=== PATIENT | male | born 1955 | race Caucasian/White ===

== ENCOUNTER → 2016-06-14 | Outpatient (CLI) | payer OTHER ==
[~2016-06-14] MED LIST: AMLO1CAP4 PO; ASPI-587 PO; DESV50TA PO; FENO145T2 PO
--- NOTE | 2016-06-14 14:15 | Diagnostic Imaging Report ---
INDICATION: Three views of the right hand. INDICATION: Pain at the base of the right thumb and near the wrist. FINDINGS: There is sclerosis, joint space narrowing, and hyperostosis seen around the carpal/metacarpal joint at the base of the thumb. No acute fracture is identified. The joint alignment is satisfactory. Mild degenerative changes at the DIP and to lesser extent at the PIP joints is seen. There is deformity from an old healed fracture of the distal shaft of the fifth metacarpal. IMPRESSION: Prominent osteoarthritic changes at the carpal/metacarpal joint at the base of the thumb with hyperostosis which could relate to a superimposed old injury. No acute fracture is seen. If the pain is centered at the wrist area, then consider dedicated wrist radiographs for better evaluation. The report was faxed to the office of Lizbeth Schneider APRN, by BREE at 2:20 PM. Dictated by: Dictated on workstation # [id number]
== END ==
LOC: RAD 13:49
PROVIDERS: ATTEND Nurse Practitioner Family
DX: M79.644 Pain in right finger(s) (principal)
CPT/HCPCS: 73130

== ENCOUNTER 2016-12-09 16:40 | Emergency (ER) | payer OTHER ==
[~2016-12-09] VITALS: Ht 177.8 cm; Wt 102.1 kg
[2016-12-09] MEDS ORDERED: MELO15TA39 PO (16:57)
[2016-12-09] MEDS ORDERED: FLEXERIL (16:57)
[2016-12-09] MEDS ORDERED: HYDR-3816 PO (16:57)
[2016-12-09] MEDS ORDERED: HYDROcodone/APAP 10 MG/325 MG (LORTAB) TAB PO STA (16:59)
--- NOTE | 2016-12-09 17:30 | Diagnostic Imaging Report ---
INDICATION: Misstep, pain laterally. FINDINGS: There is substantial soft tissue swelling about the ankle laterally. There is a subtle obliquely oriented and perhaps spiral configured fracture of the distal fibula through the lateral malleolus. No displacement of the distal fragment. The medial and posterior malleoli, the plafond and talar dome are intact. Tail is unremarkable. The calcaneus unremarkable. IMPRESSION: Subtle nondisplaced fracture of distal fibula with regional soft tissue swelling. No widening of the mortise. The remaining osseous structures normal. Dictated by: Dictated on workstation # [id number]
--- NOTE | 2016-12-09 17:33 | ED Lower Extremity ---
General Chief Complaint: Lower Extremity Stated Complaint: LT ANKLE INJ/SWELLING Nursing Triage Note: ROLLED L ANKLE WHILE DESCENDING STAIRS INJURING X1 HOUR AGO Nursing Sepsis Screen: No Definite Risk History of Present Illness Time seen by provider: 16:50 Initial Comments Patient tripped while descending the stairs and rolled his left ankle. He reports a possible previous calcaneal fracture in this foot. He has a history of lumbar radiculopathy with some paresthesias in the left foot chronically. He denies any other injuries at the time of the incident. Onset: just prior to arrival Pain/Injury Location: left ankle Method of Injury: twisted Modifying Factors: Improves With Immobilization, Improves With Rest Allergies and Home Medications Allergies Coded Allergies: latex (Verified Allergy, Unknown, 12/09/16) Home Medications Amlodipine Besylate/Benazepril 1 Cap Capsule, 1 EACH PO DAILY, (Reported) Desvenlafaxine Succinate 50 Mg Tab.sr.24h, 50 MG PO DAILY, (Reported) Fenofibrate,Micronized 145 Mg Tablet, 1 EACH PO DAILY, (Reported) Hydrocodone/Acetaminophen 1 Each Tablet, 1 EACH PO for PAIN-MILD, (Reported) Meloxicam 15 Mg Tablet, 15 MG PO, (Reported) [Flexeril] , (Reported) Constitutional: no symptoms reported, see HPI Musculoskeletal: see HPI, joint pain (left ankle), joint swelling, muscle pain All Other Systems Reviewed Negative Unless Noted: Yes Past Dmsohaq-Sjasfa-Zocebb Hx Patient Social History Alcohol Use: Denies Use Recreational Drug Use: No Smoking Status: Never a Smoker Recent Foreign Travel: No Contact w/Someone Who Travel: No Recent Infectious Disease Expo: No Recent Hopitalizations: No Surgeries History of Surgeries: No Respiratory History of Respiratory Disorde: No Cardiovascular History of Cardiac Disorders: Yes Cardiac Disorders: Hypertension Neurological History of Neurological Disord: No Gastrointestinal History of Gastrointestinal Di: No Musculoskeletal History of Musculoskeletal Dis: Yes Musculoskeletal Disorders: Chronic Back Pain Endocrine History of Endocrine Disorders: No Reviewed Nursing Assessment Reviewed/Agree w Nursing PMH: Yes Physical Exam Vital Signs Vital Sign - Last 12Hours 12/09/16 16:51 Temp 97.8 Pulse 95 Resp 18 B/P (MAP) 126/91 Pulse Ox 98 Capillary Refill : Less Than 3 Seconds General Appearance: WD/WN, no apparent distress Cardiovascular: normal peripheral pulses, regular rate, rhythm Respiratory: chest non-tender, lungs clear Ankles: left ankle bone tenderness (distal fibula), left ankle joint effusion, left ankle limited range of motion (again. The pain), left ankle pain, left ankle soft tissue tenderness, left ankle swelling, bilateral ankle other (pedal pulses 2+ and symmetric) Neurologic/Tendon: normal sensation, normal motor functions, normal tendon functions Neurologic/Psychiatric: no motor/sensory deficits, alert, normal mood/affect, oriented x 3 Progress/Results/Core Measures Results/Orders My Orders Orders - STEPHEN MARIANO Ankle, Left, 3 Views (12/09/16 16:59) Hydrocodone/Apap 10/325 Tablet (Lortab 1 (12/09/16 16:59) Vital Signs/I&O Vital Sign - Last 12Hours 12/09/16 12/09/16 16:51 17:58 Temp 97.8 97.8 Pulse 95 95 Resp 18 18 B/P (MAP) 126/91 Pulse Ox 98 98 Blood Pressure Mean: 103 Progress Note : Time: 16:50 Progress Note Initial evaluation completed. Recommended analgesia and x-rays of the left ankle. 1729 fracture of the distal fibula reviewed with patient and his . 4 inch Guero wrap and CAM walker boot applied. Crutches for ambulation. He has hydrocodone 7.5/325 mg at home for his lumbar radiculopathy. Discharge planning reviewed with patient. All questions answered. Diagnostic Imaging Diagonstic Imaging: Xray Plain Films/CT/US/NM/MRI: ankle Comments NAME: NEERU CABA [facility] REC#: [id number] PT STATUS: REG ER : 1955 PHYSICIAN: STEPHEN MARIANO ADMIT DATE: 12/09/16/ER Draft Date of Exam:12/09/16 ANKLE, LEFT, 3 VIEWS INDICATION: Misstep, pain laterally. FINDINGS: There is substantial soft tissue swelling about the ankle laterally. There is a subtle obliquely oriented and perhaps spiral configured fracture of the distal fibula through the lateral malleolus. No displacement of the distal fragment. The medial and posterior malleoli, the plafond and talar dome are intact. Tail is unremarkable. The calcaneus unremarkable. IMPRESSION: Subtle nondisplaced fracture of distal fibula with regional soft tissue swelling. No widening of the mortise. The remaining osseous structures normal. Dictated on workstation # [id number] Dict: 12/09/16 1721 Trans: 12/09/161728 [facility] [id number] Interpreted by: JEANNE KING Electronically signed by: Reviewed: Reviewed by Me Departure Impression Impression: Primary Impression: Fracture of distal end of left fibula Qualified Codes: S82.832A - Other fracture of upper and lower end of left fibula, initial encounter for closed fracture Disposition: HOME, SELF-CARE Condition: Stable Departure-Patient Inst. Decision time for Depature: 17:30 Referrals: KAVITHA SHAH MD (PCP/Family) Primary Care Physician Patient Instructions: Ankle Fracture (DC), Ankle Sprain (DC) Add. Discharge Instructions: Guero wrap and walking boot left lower extremity. Crutches weightbearing as tolerated left lower extremity. Use pain medication as needed for the ankle. Ice to left ankle 20 minutes every 2 hours. Elevate left ankle. Gentle Range of motion to toes and ankle 3-4 times daily. Schedule appointment with Dr. Monreal for early next week. Return to emergency department for new injuries or problems. All discharge instructions reviewed with patient and/or family. Voiced understanding. Copy Copies To 1: ART MONREAL MD, AMY ARNP Dec 09, 2016 17:33
[2016-12-09 17:58] VITALS: BP 126/91
== END 2016-12-09 17:58 | disposition home or self-care (01) ==
LOC: EDUNIT# 16:40 → ER 16:42
DX: S82.832A Other fracture of upper and lower end of left fibula, initial encounter for closed fracture (principal); I10 Essential (primary) hypertension; X50.0XXA Overexertion from strenuous movement or load, initial encounter
CPT/HCPCS: 73610; 99283

== ENCOUNTER 2022-12-16 08:06 | Outpatient (CLI) | payer MEDICARE, OTHER ==
[~2022-12-16] VITALS: Ht 180.3 cm; Wt 101.1 kg
[~2022-12-16 08:06] MED LIST changes: +FLEXERIL; +HYDR-34 PO; +MELO15TA39 PO
[2022-12-16 09:45] VITALS: BP 122/88
--- NOTE | 2022-12-16 09:49 | Physical Therapy Pre-Op Eval ---
PT Pre-Surgical Assessment Type of Surgery Type of Surgery: right TKR Prior Level of Function Current Living Status: Spouse Locomotion (Upon Admit): Independent PLOF DME: None Subjective Home: Multilevel Current Living Status: Spouse Patient will dismiss to home with daughter with level entry Motor Control Motor Control: Motor Control WNL ROM ROM: WFL Strength Strength: WFL Transfers Transfers (B, C, W/C) (FIM): 6 Gait Gait (FIM): 6 Gait Distance (FIM): 6 Gait Assistive Device: None Treatment Rendered Treatment: Patient instructed in assistive device, supported ambulation. Patient instructed in and given written program of ROM and strengthening exercises to be preformed post-op. Patient instructed in movement precautions where applicable. Patient demonstrates understandings of post-operative therapy protocol including gait pattern and exercise program. Pre-operative instruction completed; await physical therapy orders after surgery. Treatment Goal Met: Yes Assessment Goals Acheived: I Ambulation w/ FWW, Understands P-op Precaut, I Post-op Exerc ises Charges/GCodes Time In: 915 Time Out: 925 Total Billed Treatment Time: 10 Total Billed Treatment 1 visit EVLowC 10 min MARTHA WANG PT Dec 16, 2022 09:49
[2022-12-16] MEDS ORDERED: MONT-40 PO (09:54)
[2022-12-16] MEDS ORDERED: PREG75CA76 PO (09:54)
[2022-12-16] MEDS ORDERED: TRAZ-227 PO (09:54)
[2022-12-16] MEDS ORDERED: FLUT15OI2 TP (09:54)
[2022-12-16] MEDS ORDERED: DESL5TAB PO (09:54)
[2022-12-16 10:36] LABS: BASOPHILS # (AUTO) 0.1 10^3/uL (0.0-0.1); BASOPHILS % (AUTO) 1 % (0-10); EOSINOPHILS # (AUTO) 0.1 10^3/uL (0.0-0.3); EOSINOPHILS % (AUTO) 2 % (0-10); HEMATOCRIT 42 % (40-54); HEMOGLOBIN 14.2 g/dL (13.3-17.7); LYMPHOCYTES # (AUTO) 1.5 10^3/uL (1.0-4.0); LYMPHOCYTES % (AUTO) 37 % (12-44); MEAN CORPUSCULAR HEMOGLOBIN 30 pg (25-34); MEAN CORPUSCULAR HGB CONC 34 g/dL (32-36); MEAN CORPUSCULAR VOLUME 88 fL (80-99); MEAN PLATELET VOLUME 11.2 fL (9.0-12.2); MONOCYTES # (AUTO) 0.4 10^3/uL (0.0-1.0); MONOCYTES % (AUTO) 10 % (0-12); NEUTROPHILS # (AUTO) 2.1 10^3/uL (1.8-7.8); NEUTROPHILS % (AUTO) 50 % (42-75); PLATELET COUNT 252 10^3/uL (130-400); WHITE BLOOD COUNT 4.2 10^3/uL (4.3-11.0)
[2022-12-16 10:43] LABS: CLARITY,URINE CLEAR; COLOR,URINE YELLOW
[2022-12-16 10:44] LABS: BACTERIA,URINE NEGATIVE /HPF; BILIRUBIN,URINE NEGATIVE (NEGATIVE); GLUCOSE, URINE (UA) NEGATIVE (NEGATIVE); KETONES,URINE NEGATIVE (NEGATIVE); LEUKOCYTE ESTERASE ,URINE NEGATIVE (NEGATIVE); NITRITE,URINE NEGATIVE (NEGATIVE); PH,URINE 6.5 (5-9); PROTEIN,URINE NEGATIVE (NEGATIVE); WBC,URINE RARE /HPF
[2022-12-16 10:47] LABS: PROTHROMBIN TIME PATIENT 13.1 SEC (12.2-14.7)
--- NOTE | 2022-12-16 10:48 | Diagnostic Imaging Report ---
INDICATION: Preoperative evaluation prior to total knee replacement. COMPARISON: None FINDINGS: Frontal and lateral views of the chest demonstrate normal heart size and pulmonary vascularity. The lungs are clear. There are no signs of infiltrate, pleural effusions or pneumothoraces. The visualized osseous structures show no acute abnormalities. Indwelling neurostimulator device is noted. IMPRESSION: 1. No acute process. No signs of infiltrates, effusions or pneumothoraces. Dictated by: Dictated on workstation # [id number]
[2022-12-16 10:56] LABS: ALBUMIN 4.2 GM/DL (3.2-4.5); BILIRUBIN,TOTAL 0.4 MG/DL (0.1-1.0); CALCIUM 9.1 MG/DL (8.5-10.1); CREATININE SERUM 0.95 MG/DL (0.60-1.30); POTASSIUM 3.9 MMOL/L (3.6-5.0); TOTAL PROTEIN 7.2 GM/DL (6.4-8.2)
== END 2022-12-16 13:05 ==
LOC: PREOP 08:06
PROVIDERS: ATTEND Orthopaedic Surgery
DX: Z01.818 Encounter for other preprocedural examination (principal); M17.11 Unilateral primary osteoarthritis, right knee
CPT/HCPCS: 36415; 71046; 80053; 81000; 85025; 85610; 86850; 86900; 86901; 87081; 93005

== ENCOUNTER 2022-12-22 07:19 | Inpatient (IN) | payer MEDICARE, OTHER ==
--- NOTE | 2022-12-15 08:23 | HISTORY AND PHYSICAL ---
DATE OF SERVICE: 12/22/2022 ADMISSION HISTORY AND PHYSICAL This will be for inpatient admission on 12/22/2022 for right total knee arthroplasty. HISTORY: The patient is a 67-year-old active gentleman with complaints of progressively worsening right knee pain. He has undergone treatment with injections with only temporary relief of his symptoms. He reports activity limitations because of the knee. He denies recent injuries. Radiographs reveal severe medial and patellofemoral arthrosis. Due to functional impairment and failure to improve with conservative measures, the patient has elected to proceed with surgical intervention. REVIEW OF SYSTEMS: No chest pain, no shortness of breath. No dysuria. PAST MEDICAL HISTORY: Hypertension, depression, hypercholesterolemia. PAST SURGICAL HISTORY: [place] tooth extraction, spinal cord stimulator, ACDF of C3 through C6. FAMILY HISTORY: Stroke, cancer, cardiovascular disease, congestive heart failure, lung cancer. MEDICATIONS: Amlodipine, Mobic, TriCor, Pristiq, fluticasone, desloratadine, trazodone, pregabalin, and meloxicam. ALLERGIES: LATEX. SOCIAL HISTORY: The patient is a former smoker, currently chews tobacco. Denies alcohol use. PHYSICAL EXAMINATION: GENERAL: The patient is well-developed, well-nourished, in no acute distress. HEENT: Normocephalic, atraumatic. Pupils equal, round, reactive to light. Oropharynx is clear. NECK: Supple, with no lymphadenopathy. LUNGS: Clear to auscultation bilaterally. HEART: Regular rate and rhythm. ABDOMEN: Soft, nontender, nondistended. EXTREMITIES: The right knee demonstrates varus alignment. He has a slight effusion. There is no erythema or warmth. Range of motion 0/2/120. No varus or valgus laxity. Negative anterior and posterior drawer. He ambulates with an antalgic gait. IMPRESSION: Severe right knee osteoarthritis, unresponsive to conservative measures. PLAN: Right total knee arthroplasty. The risks, benefits, options, ramifications and recovery were discussed at length with the patient. He understands and wishes to proceed. This will be for surgery on 12/22/2022. Job ID: [id number] DocumentID: [id number] Dictated Date: 12/06/2022 12:14:30 Medical Equipment Technician Date: 12/06/2022 14:32:00 Dictated By: ART FERNANDES MD
[2022-12-22] VITALS (11 sets, daily range): BP systolic 105–142; BP diastolic 75–99
[~2022-12-22] VITALS: Ht 180.3 cm; Wt 98.8 kg
[~2022-12-22 07:19] MED LIST changes: +DESL5TAB PO; +FLUT15OI2 TP; +MONT-40 PO; +PREG75CA76 PO; +TRAZ-227 PO
--- NOTE | 2022-12-22 07:32 | Progress Note-Pre Operative ---
Pre-Operative Progress Note Date of Available H&P: Dec 15, 2022 Date H&P Reviewed: Dec 22, 2022 Time H&P Reviewed: 07:11 Changes from last HP none Pre-Operative Diagnosis: right knee primary osteoarthritis ART FERNANDES MD Dec 22, 2022 07:32
--- NOTE | 2022-12-22 07:33 | Progress Note-Post Operative ---
Post-Operative Progess Note Surgeon (s)/Television Servicer (s) Surgeon ART FERNANDES MD Television Servicer: Galindo Martin Pre-Operative Diagnosis right knee primary osteoarthritis Post-Operative Diagnosis right knee primary osteoarthritis Procedure & Operative Findings Date of Procedure 12/22/22 Procedure Performed/Findings right total knee arthroplasty Anesthesia Type GETA Estimated Blood Loss Estimated blood loss (mL): minimal Specimens/Packing Specimens Removed none Packing: none ART FERNANDES MD Dec 22, 2022 07:33
--- NOTE | 2022-12-22 07:35 | D/C HH Face to Face Order ---
D/C Face to Face Orders Reconcile Patient Problems Problems Reviewed?: Yes Instructions for Patient Via [facility] [employer], Patient Instructions/FollowUp: three weeks Physician to follow Patient: three weeks Discharge Diet for Home: Regular Diet Patient Data-Allergies,Ht & Wt Patient Allergies: Coded Allergies: latex (Verified Allergy, Unknown, 12/09/16) Height (Feet): 5 Height (Inches): 10.00 Weight (Pounds): 225 Home Health Need/Face to Face Date of Face to Face: Dec 22, 2022 Clinical Findings: Muscle weakness, Pain with ambulation, Unsteady gait I have seen Pt [id number]: Yes Discharged To: Home Diagnosis/Conditions: right total knee arthroplasty Patient is Homebound due to: Muscle weakness, Pain w/ambulation Homebound Status Due to the above stated illness, injury or surgical procedure (medical condition or diagnosis) and associated clinical findings, the patient is homebound because of his/her inability to leave home except with aid of a supportive device and/or person AND leaving the home requires a considerable and taxing effort or is medically contraindicated. Pt req the following assistanc: Walker Home Health Nursing Orders Home Health Services Order: Physical Therapy-Evaluate & Treat DC right knee elizabet and apply steri strips 01/05/23 Therapy Orders Therapy Orders: Physical Therapy, PT to assess for OT Therapy Specific Orders: Eval assistive deivces, Teach enviro modifications/safety, Gait training, Increase strength/endurance, Provider maintenance therapy, Restore ROM Certify Stmt I certify that this patient is under my care and that I, a nurse practitioner or a physician; a real estate executive assistant working with me, had a face to face encounter that - meets the physician face to face encounter requirements with this patient as dated. ART FERNANDES MD Dec 22, 2022 07:35
[2022-12-22] MEDS ORDERED: INTRA-ARTICULAR IU ONE ×5 (08:00)
[2022-12-22] MEDS ORDERED: LACTATED RINGERS 1,000 ML 1,000 ML IV PRN (08:00)
[2022-12-22] MEDS ORDERED: CEFUROXIME INJECTION 1,500 MG in NS (IVPB) 50 ML 50 ML IV ONE (08:00)
[2022-12-22] MEDS ORDERED: LIDOCAINE PF 2% 5 ML VIAL ONE (08:20)
[2022-12-22] MEDS ORDERED: ROPIVACAINE 5 MG/ML 30ML VIAL ONE (08:20)
[2022-12-22] MEDS ORDERED: MIDAZOLAM INJ 2 MG/2 ML VIAL ONE (08:20)
[2022-12-22] MEDS ORDERED: fentaNYL INJECTION 100 MCG/2 ML VIAL ONE (08:47)
[2022-12-22] MEDS ORDERED: ONDANSETRON INJECTION 4 MG/2 ML (SDV) ONE (08:49)
[2022-12-22] MEDS ORDERED: proPOfol INJECTION 200 MG/20 ML VIAL IV ONE (08:49)
[2022-12-22] MEDS ORDERED: GABA300C PO (09:17)
[2022-12-22] MEDS ORDERED: ACET-168 PO (09:17)
[2022-12-22] MEDS ORDERED: HYDROmorphone INJECTION 2 MG/ML VIAL ONE (09:44)
[2022-12-22] MEDS ORDERED: SEVOFLURANE (ULTANE) 15 ML INHAL SOLN ONE (10:44)
--- NOTE | 2022-12-22 10:59 | Anesthesia-General Post-Op ---
General Patient Condition Mental Status/LOC: Same as Preop Cardiovascular: Satisfactory Nausea/Vomiting: Absent Respiratory: Satisfactory Pain: Controlled Complications: Absent Post Op Complications Complications None Follow Up Care/Instructions Patient Instructions None needed. Anesthesia/Patient Condition Patient Condition Patient is doing well, no complaints, stable vital signs, no apparent adverse anesthesia problems. No complications reported per nursing. CLEMENT PRESCOTT CRNA Dec 22, 2022 10:59
[2022-12-22] MEDS ORDERED: diphenhydrAMINE INJ 50 MG/ML VIAL IVP PRN (11:00)
[2022-12-22] MEDS ORDERED: ONDANSETRON INJECTION 4 MG/2 ML (SDV) IV PRN (11:00)
[2022-12-22] MEDS ORDERED: HYDROmorphone INJECTION 2 MG/ML VIAL IV ONE (11:00)
[2022-12-22] MEDS ORDERED: ONDANSETRON INJECTION 4 MG/2 ML (SDV) IVP PRN (11:00)
[2022-12-22] MEDS ORDERED: TEMAZEPAM 15 MG (RESTORIL) CAP PO PRN (11:00)
[2022-12-22] MEDS ORDERED: oxyCODONE/ACETAMINOPHEN 5/325MG TABLET PO PRN (11:15)
--- NOTE | 2022-12-22 12:19 | Progress Note ---
Standard Progress Note Progress Notes/Assess & Plan Date Seen by a Provider: Dec 22, 2022 Time Seen by a Provider: 11:12 Progress/Assessment & Plan post op check no complaints radiographs--HW well positioned without fracture RLE--2 plus DP pulse with brisk cap refill intact DF and PF of toes and ankle sensation intact to light touch throughout s/p RTKA mobilize as able ART FERNANDES MD Dec 22, 2022 12:19
[2022-12-22] MEDS: NS IV 1000 ML 1,000 ML IV SCH (13:32)
--- NOTE | 2022-12-22 14:11 | Physical Therapy Evaluation ---
PT Evaluation-General Medical Diagnosis Admission Date Dec 22, 2022 at 07:19 Medical Diagnosis: RTKA Onset Date: Dec 22, 2022 Therapy Diagnosis Therapy Diagnosis: Gait deficit, strength deficit Height/Weight Height (Feet): 5 Height (Inches): 10.00 Weight (Pounds): 225 Precautions Precautions/Isolations: Fall Prevention, Standard Precautions Weight Bear Status Right Lower Extremity: Right Weight Bearing/Tolerated Left Lower Extremity: Left Full Weight Bearing Referral Physician: Dr. Monreal Reason for Referral: Evaluation/Treatment Medical History Reviewed History: Yes Social History Home: Single Level Current Living Status: Spouse Entry Into Home: Stairs With Railing PT Steps Into Home: 3 PT Steps Inside Home: 12 Prior Prior Level of Function SCALE: Activities may be completed with or without assistive devices. 5-Bgrnskibzd-wwbfyge completes the activity by him/herself with no assistance from a helper. 5-Set-up or Clean-up Assistance-helper sets up or cleans up; patient completes activity. [place] assists only prior to or following the activity. 4-Supervision or Touching Assistance-helper provides verbal cues and/or touching/steadying and/or contact guard assistance as patient completes activity. Assistance may be provided throughout the activity or intermittently. 3-Partial/Moderate Assistance-helper does LESS THAN HALF the effort. [place] l ifts, holds or supports trunk or limbs, but provides less than half the effort. 2-Substantial/Maximal Assistance-helper does MORE THAN HALF the effort. [place] lifts or holds trunk or limbs and provides more than half the effort. 2-Dishrcxhh-fotwwz does ALL the effort. Patient does none of the effort to complete the activity. Or, the assistance of 2 or more helpers is required for t he patient to complete the activity. If activity was not attempted, code reason: 7-Patient Refused. 9-Not Applicable-not attempted and the patient did not perform the activity before the current illness, exacerbation or injury. 10-Not Attempted due to Environmental Limitations-(lack of equipment, weather restraints, etc.). 88-Not Attempted due to Medical Conditions or Safety Concerns. Bed Mobility: 6 Transfers (B,C,W/C): 6 Gait: 6 Stairs: 6 Indoor Mobility (Ambulation): Independent Stairs: Independent Prior Devices Use: None PT Evaluation-Current Subjective Patient lying supine in bed upon PT arrival, agreeable to treatment. Patient rates pain at 0/10 currently. Objective Patient Orientation: Person, Place, Time, Situation Attachments: Oxygen, Polar Pack, IV ROM/Strength ROM Lower Extremities Left knee WFLs all planes. Right knee lacks 10 degrees flexion and 80 degrees extension. Strength Lower Extremities Left LE 5/5 all planes. Right knee 3/5 flexion and extension. Sensory Vision: Functional Hearing: Functional Sensation Right Lower Extremit: Intact Sensation Left Lower Extremity: Intact Transfers Roll Left to Right (QC): 4 Sit to Lying (QC): 4 Lying to Sitting/Side of Bed(Q: 4 Sit to Stand (QC): 4 Chair/Mjt-jl-Hymnv Xfer(QC): 4 Gait Does the Patient Walk?: Yes Mode of Locomotion: Walk Anticipated Mode of Locomotion: Walk Walk 10 feet (QC): 4 Distance: 20' Gait Assistive Device: FWW Balance Sitting Static: Good Sitting Dynamic: Good Standing Static: Fair Standing Dynamic: Fair Assessment/Needs Patient performs all bed mobility and transfers with SBA/CGA. Patient ambulates 20 feet with FWW, with CGA and verbal cues for safety, progression, posture and gait pattern. Patient in chair post treatment with all needs met, nursing notified, call light in hand. Rehab Potential: Good Equipment Needs FWW PT Long-Term Goals Behavioral Health Specialist Goals PT Behavioral Health Specialist Goals Time Frame: Jan 20, 2023 Roll Left & Right (QC): 6 Sit to Lying (QC): 6 Lying-Sitting on Side/Bed(QC): 6 Sit to Stand (QC): 6 Chair/Nnm-ou-Gsxal Xfer(QC): 6 Toilet Transfer (QC): 6 Does the Patient Walk: Yes Walk 10 feet (QC): 6 Walk 50ft with 2 Turns (QC): 6 Walk 150 ft (QC): 6 1 Step (curb) (QC): 4 4 Steps (QC): 4 PT Plan Problem List Problem List: Activity Tolerance, Functional Strength, Safety, Balance, Gait, Transfer, Bed Mobility, ROM Treatment/Plan Treatment Plan: Continue Plan of Care Treatment Plan: Bed Mobility, Education, Functional Activity [place], Functional Strength, Group Therapy, Gait, Safety, Therapeutic Exercise, Transfers Treatment Duration: Jan 20, 2023 Frequency: 11 times per week Estimated Hrs Per Day: .25 hour per day Patient and/or Family Agrees t: Yes Safety Risks/Education Patient Education: Gait Training, Transfer Techniques Teaching Recipient: Patient Teaching Methods: Demonstration, Discussion Response to Teaching: Verbalize Understanding, Return Demonstration Time Time In: 1343 Time Out: 1400 DATE: Dec 22, 2022 Total Billed Treatment Time: 17 Total Billed Treatment Visit, BRANDON ELIZABETH PT Dec 22, 2022 14:11
--- NOTE | 2022-12-22 14:42 | Diagnostic Imaging Report ---
INDICATION: Status post right knee replacement COMPARISON: None. FINDINGS: Multiple radiographic views of the right knee were obtained. Expected postoperative changes are seen from recent right knee total arthroplasty. Femoral and tibial components appear well-seated. Soft tissue emphysema and surgical skin elizabet are present. There is no evidence of periprosthetic fracture. No unexpected radiopaque foreign bodies are identified. IMPRESSION: Expected postsurgical changes from right knee total arthroplasty, as described above. Dictated by: Dictated on workstation # [id number]
--- NOTE | 2022-12-22 14:45 | Consultation - Hospitalist ---
ERMA CABRERA 12/22/22 1444: HPI History of Present Illness: HPI/Chief Complaint Pt is a 67 y/o male presenting s/p R knee total arthroplasty d/t knee osteoarthritis with Dr. Monreal this morning. States that his R knee has been causing him pain for several years now. Over the last year, he did PT and exercised at the gym but despite these interventions, he reported increasingly severe R knee pain. He states that he was able to walk before surgery but that it was a limping gait and it would pain him greatly later in the day. He reports that he has been taking meloxicam for pain management prior to surgery. He states that he follows with Leia Wellington for primary care. Source: patient Exam Limitations: no limitations Date Seen 12/22/22 Attending Physician Ondina Wellington PCP Admitting Physician: Ashu Monreal MD Attending Physician: Ashu Monreal MD Referring Physician Dr. Monreal Date of Admission Dec 22, 2022 at 07:19 Home Medications & Allergies Home Medications Reviewed patient Home Medication Reconciliation performed by pharmacy medication reconciliations durable medical equipment technician and/or nursing. Patients Allergies have been reviewed. Allergies Allergies Coded Allergies latex (Verified Allergy, Unknown, 12/09/16) Past Unffqwx-Xshiev-Dwpctp Hx Patient Social History Marrital Status: Employed/Student: retired Tobacco Use?: No Tobacco type used: Cigarettes Smoking Status: Former Smoker Smokeless type used: Chew Smokeless Tobacco Frequency: Current Everyday User Use of E-Cig and/or Vaping dev: No Substance use?: Yes Substance type: Caffeine Alcohol Use?: No Immunizations Up To Date Date of Influenza Vaccine: Dec 03, 2022 Seasonal Allergies Seasonal Allergies: Yes Current Status Advance Directives: No Communicates: Verbally Primary Language: Moroccan Sensory deficits: Vision impairment Implanted or Applied Medical D: Other Past Medical History Surgeries: Joint Replacement, Orthopedic (spinal cord stimulator, ACDF C3-C6) High Cholesterol, Hypertension Gastroesophageal Reflux Arthritis, Chronic Back Pain Cataract Depression Eczema Blood Disorders: No Family Medical History Heart Disease, Cancer (lung cancer in father), CAD Over 55 Years Old, Hypertension, Lung Disease, Stroke Review of Systems Constitutional: No chills, No fever EENTM: No blurred vision, No double vision Respiratory: No cough, No short of breath, No wheezing Cardiovascular: No chest pain, No palpitations Gastrointestinal: No abdominal pain, No constipation Genitourinary: No dysuria, No frequency Musculoskeletal: back pain; No joint pain Skin: No dryness, No rash Psychiatric/Neurological: Denies Anxiety; Depressed Physical Exam Physical Exam Vital Signs Vital Signs - First Documented 12/22/22 07:25 Temp 35.9 Pulse 71 Resp 20 B/P (MAP) 128/86 (100) Pulse Ox 95 O2 Delivery Room Air Capillary Refill : Less Than 3 Seconds Height, Weight, BMI Height: 5'10.00" Weight: 225lbs. oz. 102.204811ia; 30.39 BMI Method:Stated General Appearance: No Apparent Distress, WD/WN Eyes: Bilateral Eye Normal Inspection HEENT: PERRL/EOMI Neck: Normal Inspection, Non Tender Respiratory: Lungs Clear, Normal Breath Sounds, No Accessory Muscle Use, No Respiratory Distress Cardiovascular: Regular Rate, Rhythm, No Gallop, No Murmur, Normal Peripheral Pulses Gastrointestinal: Non Tender, Soft Rectal: Deferred Extremity: Normal Capillary Refill, Swelling (R knee), Other (R knee with bandage dressing applied) Neurologic/Psychiatric: Alert, Oriented x3, Normal Mood/Affect Skin: Normal Color, Warm/Dry Lymphatic: No Adenopathy Results Results/Procedures Labs Patient resulted labs reviewed. Imaging: Reviewed Imaging Films, Reviewed Imaging Report Assessment/Plan Assessment and Plan Assess & Plan/Chief Complaint S/p R knee total arthroplasty - Enoxaparin 30 mg tmw for DVT prophylaxis - Cefuroxime 750 mg IV every 8 hrs for 16 hrs postop - Tramadol 100 mg PO - Oxycodone 5/325 PO q4 hrs - Senna 2 tablets PO - Gapapentin 300 mg PO - Continue IS - PT referral and start tmw HTN - Restart amlodipine/benazepril 5-10mg/d PO Hypercholestemia - Restart Fenofibrate 145 mg PO daily SELVIN BONNER MD 12/22/22 1535: Assessment/Plan Assessment and Plan Assess & Plan/Chief Complaint Pt reports doing well. No complaints. Pain is well controlled. Contineu pain regimen and bowel regimen. Was up ambulating when I was in the room. PT ordered and has already worked with him. Only question is about spine stimulator that he was advised to turn off. Attempted to reach anesthesia and ortho to find out when he could turn it back on. Resume home meds. Supervisory-Addendum Brief Verification & Attestation Participated in pt care: history, MDM, physical Personally performed: exam, history, MDM, supervision of care Care discussed with: Medical Student Procedures: n/a Results interpretation: Verified all documentation Verification and Attestation of Medical Student E/M Service A medical student performed and documented this service in my presence. I reviewed and verified all information documented by the medical student and made modifications to such information, when appropriate. I personally performed the physical exam and medical decision making. Selvin Bonner, Dec 22, 2022,15:33 ERMA CABRERA Dec 22, 2022 14:44 SELVIN BONNER MD Dec 22, 2022 15:35
[2022-12-22] MEDS: CEFUROXIME INJECTION 750 MG in NS (IVPB) 50 ML 50 ML IV SCH (17:28)
--- NOTE | 2022-12-22 20:04 | OPERATIVE REPORT ---
DATE OF SERVICE: 12/22/2022 PREOPERATIVE DIAGNOSIS: Right knee primary osteoarthritis. POSTOPERATIVE DIAGNOSIS: Right knee primary osteoarthritis. PROCEDURE: Right total knee arthroplasty. SURGEON: Ashu Fernandes M.D. CIGAR TOBACCO PROCESSING SUPERVISOR: Galindo Martin, who assisted throughout the procedure and closed the incision. ANESTHESIA: General endotracheal by Galina Cardozo CRNA. TOURNIQUET TIME: Approximately 68 minutes at 300 mmHg. ESTIMATED BLOOD LOSS: Minimal. DRAINS: None. COMPLICATIONS: None. POSTOPERATIVE PLAN: Routine protocol. The patient was transferred to the recovery room, awake and in stable condition. MATERIALS: MicroPort cemented size 6 femur, cemented size 6 tibia with 10 mm insert and cemented size 35 patellar button. STATEMENT OF MEDICAL NECESSITY: The patient is a 67-year-old active gentleman with complaints of progressively worsening right knee pain. Radiographs revealed severe medial and patellofemoral arthrosis. He has undergone treatment with injections, anti-inflammatories and rest without relief. Due to functional impairment and failure to improve with conservative measures, the patient elected to proceed with surgical intervention. DESCRIPTION OF PROCEDURE: After risks and benefits of the procedure were discussed and questions were answered and informed consent was signed and placed on the chart, the operative site was confirmed in and holding area initialed by surgeon. The patient was then transported to the operating room. After adequate levels of general endotracheal anesthetic were obtained, a timeout was called, confirming the operative site. The right lower extremity was prepped and draped in the usual sterile fashion. With the leg elevated and the knee flexed, the tourniquet was inflated to 300 mmHg. A standard anterior approach was utilized. Hemostasis was obtained with cautery. Medial parapatellar arthrotomy was performed, leaving 1 cm cuff on the patella for later reattachment. A portion of the fat pad was resected. The ACL was resected. A subperiosteal release was performed on the proximal medial tibia, being careful stay on the bony surface. The intramedullary guide was passed into the femoral canal. The distal cutting block was placed and the distal cut was made. The femur sized to a size 6. The 6 cutting block was placed parallel to the epicondylar axis and cuts were made from posterior to anterior. Subperiosteal release was then carefully performed on the posterior distal femur, being careful to stay on the bony surface. The intramedullary guide was then passed into the tibial canal. The cutting block was placed. The drop gaye transected the intermalleolar axis and the cut was made. The 6 baseplate provided excellent coverage and again the drop gaye transected the intermalleolar axis and this was prepared with the drill and keel punch. A 10-mm trial was placed and the femoral trial was placed and trochlear cut was made. The patella was then prepared by resecting 10 mm off the undersurface. The peg guide was placed and peg holes were drilled. The 35 trial was placed. The knee was taken through range of motion. Full extension was easily obtained, 120 degrees of flexion with gravity was easily obtained. The patella tracked well. There was no anterior/posterior or medial/lateral laxity in flexion or extension. The trials were removed. The joint was irrigated with pulse lavage. Periarticular block was placed in the posterior capsule, medial and lateral retinaculum extensor mechanism, subcutaneous tissues. The bone ends were irrigated and dried and the tibial baseplate was cemented into position. Excessive cement was removed. The superior surface was irrigated and dried and the polyethylene insert was placed. The distal femur was irrigated and dried and the femoral prosthesis was cemented into position. Excessive cement was removed. The knee was brought out into full extension until the cement had cured. The undersurface of the patella was irrigated and dried. The patellar button was cemented into position. Excessive cement was removed. Once the cement cured, the knee was taken through range of motion. Full extension was easily obtained and 120 degrees of flexion with gravity was easily obtained. There was no anterior/posterior or medial/lateral laxity in flexion or extension. The patella tracked well. The joint was further irrigated with pulse lavage. The arthrotomy was closed with #2 Tevdek in nkdmhe-pu-fuddx in interrupted fashion. The knee was flexed. Repair was stable. Subcutaneous tissues were irrigated with pulse lavage. A total of 6 liters was used throughout the procedure. In addition, 450 mL of IrriSept was used throughout the procedure. 0 Vicryl was used for the deep subcutaneous layer and 2-0 Vicryl for the superficial subcutaneous layer. Americo were used on the skin and soft dressing was applied. The tourniquet was deflated and the patient was transported to the recovery room awake and in stable condition. Job ID: [id number] DocumentID: [id number] Dictated Date: 12/22/2022 10:59:24 Shoe Repairer Apprentice Date: 12/22/2022 20:02:00 Dictated By: ASHU FERNANDES MD
[2022-12-22] MEDS: SENNA W/DOCUSATE TABLET PO SCH (20:49)
[2022-12-22] MEDS ORDERED: GABAPENTIN 300 MG CAPSULE PO ONE (21:00)
[2022-12-23] MEDS: CEFUROXIME INJECTION 750 MG in NS (IVPB) 50 ML 50 ML IV SCH (01:00)
[2022-12-23 03:37] VITALS: BP 128/74
[2022-12-23 05:54] LABS: HEMOGLOBIN 11.4 g/dL (13.3-17.7)
[2022-12-23] MEDS: NS IV 1000 ML 1,000 ML IV SCH (06:18)
[2022-12-23 07:49] VITALS: BP 119/74
--- NOTE | 2022-12-23 07:56 | Progress Note ---
Standard Progress Note Progress Notes/Assess & Plan Date Seen by a Provider: Dec 23, 2022 Time Seen by a Provider: 07:47 Progress/Assessment & Plan post op check no complaints radiographs--HW well positioned without fracture RLE--2 plus DP pulse with brisk cap refill intact DF and PF of toes and ankle sensation intact to light touch throughout s/p RTKA mobilize as able Final Diagnosis no complaints Vital Signs Date Time Temp Pulse Resp B/P (MAP) Pulse Ox O2 Delivery O2 Flow Rate FiO2 12/23/22 03:37 37.0 86 18 128/74 (92) 95 Room Air 0.00 0.00 12/22/22 23:23 37.2 80 18 131/75 (93) 95 Room Air 12/22/22 20:50 Room Air 12/22/22 19:22 36.8 84 16 130/78 (95) 97 Room Air 12/22/22 15:15 36.6 80 16 124/81 (95) 95 12/22/22 12:19 36.4 84 16 129/76 (93) 97 Nasal Cannula 3.00 12/22/22 12:00 97 Nasal Cannula 3.00 12/22/22 11:50 Nasal Cannula 3.00 12/22/22 11:40 36.1 11 105/76 (86) 97 Nasal Cannula 3.00 12/22/22 11:40 Nasal Cannula 3.00 12/22/22 11:30 12 109/76 (87) 97 OxyMask 10.00 12/22/22 11:25 OxyMask 10.00 12/22/22 11:20 12 140/99 (113) 95 OxyMask 10.00 12/22/22 11:10 OxyMask 10.00 12/22/22 11:10 12 142/94 (110) 95 OxyMask 10.00 12/22/22 11:00 10 125/81 (96) 95 OxyMask 10.00 12/22/22 10:55 36.7 20 124/77 (93) 94 OxyMask 10.00 12/22/22 10:55 OxyMask 10.00 I & O 12/23/22 07:00 Intake Total 1425 ml Balance 1425 ml Laboratory Tests Test 12/23/22 05:37 Range/Units Hemoglobin 11.4 L 13.3-17.7 g/dL Hematocrit 35 L 40-54 % RLE--NVI distally no calf tenderness neg Nikhil's s/p RTKA doing well DC home later today if doing well with PT ART FERNANDES MD Dec 23, 2022 07:56
[2022-12-23] MEDS ORDERED: ENOXAPARIN 30 MG/0.3 ML SYRINGE SC SCH (08:00)
[2022-12-23] MEDS: SENNA W/DOCUSATE TABLET PO SCH (08:26)
[2022-12-23] MEDS ORDERED: CELECOXIB 400 MG CAPSULE PO SCH (09:00)
--- NOTE | 2022-12-23 15:23 | Physical Therapy Daily Note ---
PT Daily Note-Current Subjective Patient lying supine in bed upon PT arrival, agreeable to treatment. Patient rates pain in right knee at 0/10 Pain Section J - Health Conditions 1. Rarely or not at all 2. Occasionally 3. Frequently 4. Almost constantly 8. Unable to answer Pain Effect on Sleep: 1 Pain Interference with Therapy: 1 Pain Interference w/Day-to-Day: 1 Transfers SCALE: Activities may be completed with or without assistive devices. 8-Qyucmpiqql-puicpzk completes the activity by him/herself with no assistance from a helper. 5-Set-up or Clean-up Assistance-helper sets up or cleans up; patient completes activity. Ollie assists only prior to or following the activity. 4-Supervision or Touching Assistance-helper provides verbal cues and/or touching/steadying and/or contact guard assistance as patient completes activity. Assistance may be provided throughout the activity or intermittently. 3-Partial/Moderate Assistance-helper does LESS THAN HALF the effort. Ollie lifts, holds or supports trunk or limbs, but provides less than half the effort. 2-Substantial/Maximal Assistance-helper does MORE THAN HALF the effort. Ollie lifts or holds trunk or limbs and provides more than half the effort. 4-Ocddlooxn-zgvgxg does ALL the effort. Patient does none of the effort to complete the activity. Or, the assistance of 2 or more helpers is required for the patient to complete the activity. If activity was not attempted, code reason: 7-Patient Refused. 9-Not Applicable-not attempted and the patient did not perform the activity before the current illness, exacerbation or injury. 10-Not Attempted due to Environmental Limitations-(lack of equipment, weather restraints, etc.). 88-Not Attempted due to Medical Conditions or Safety Concerns. Roll Left & Right (QC): 4 Sit to Lying (QC): 4 Lying to Sitting/Side of Bed(Q: 4 Sit to Stand (QC): 4 Chair/Elq-mk-Plktr Xfer(QC): 4 Weight Bearing Right Lower Extremity: Right Weight Bearing/Tolerated Left Lower Extremity: Left Full Weight Bearing Gait Training Does the Patient Walk?: Yes Distance: 200' Walk 10 feet (QC): 4 Walk 50 ft with 2 Turns(QC): 4 Walk 150 ft (QC): 4 Gait Assistive Device: FWW Assessment Current Status: Good Progress Patient performs all bed mobility and transfers with SBA. Patient ambulates 200' With FWW, with SBA and verbal cues for safety, progression, posture and gait pattern. Patient in chair post treatment with all needs met, nursing notified, call light in hand. PT Senior Care Goals Senior Care Goals PT Hr Receptionist Goals Time Frame: Jan 20, 2023 Roll Left & Right (QC): 6 Sit to Lying (QC): 6 Lying-Sitting on Side/Bed(QC): 6 Sit to Stand (QC): 6 Chair/Mbe-pf-Waczm Xfer(QC): 6 Toilet Transfer (QC): 6 Does the Patient Walk: Yes Walk 10 feet (QC): 6 Walk 50ft with 2 Turns (QC): 6 Walk 150 ft (QC): 6 1 Step (curb) (QC): 4 4 Steps (QC): 4 PT Plan Treatment/Plan Treatment Plan: Continue Plan of Care Treatment Plan: Bed Mobility, Education, Functional Activity [place], Functional Strength, Group Therapy, Gait, Safety, Therapeutic Exercise, Transfers Treatment Duration: Jan 20, 2023 Frequency: 11 times per week Estimated Hrs Per Day: .25 hour per day Patient and/or Family Agrees t: Yes Safety Risks/Education Patient Education: Gait Training, Transfer Techniques Teaching Recipient: Patient Teaching Methods: Demonstration, Discussion Response to Teaching: Verbalize Understanding, Return Demonstration Time Time In: 904 Time Out: 920 DATE: Dec 23, 2022 Total Billed Treatment Time: 16 Total Billed Treatment Visit, GT BRANDON HERNANDEZ PT Dec 23, 2022 15:23
== END 2022-12-23 12:20 | disposition home health service (06) | DRG 470 ==
LOC: 4TH 07:19 → SURG 07:20 → 4TH 11:50
PROVIDERS: ADMIT Orthopaedic Surgery; ATTEND Orthopaedic Surgery
PROC: 0SRC0J9 Replacement of Right Knee Joint with Synthetic Substitute, Cemented, Open Approach (ICD-10-PCS; principal; 2022-12-22 09:13)
DX: M17.11 Unilateral primary osteoarthritis, right knee (principal); I10 Essential (primary) hypertension; E78.00 Pure hypercholesterolemia, unspecified; F32.A Depression, unspecified; F17.220 Nicotine dependence, chewing tobacco, uncomplicated; Z91.040 Latex allergy status
CPT/HCPCS: 36415; 73560; 85014; 85018; 86850; 86900; 86901; 94664